=== PATIENT | male | born 1980 | race Caucasian/White ===

== ENCOUNTER 2022-02-03 09:43 | Inpatient (IN) | payer MEDICAID, OTHER ==
[~2022-02-03] VITALS: Ht 190.5 cm; Wt 118.2 kg
[~2022-02-03 09:43] MED LIST: LISI-709; SERT50TA; SIMV10TA2
[2022-02-03 10:21] LABS: Basophils # (auto) 0.1 10 ^3/uL (0-0.2); Basophils % (auto) 0.8 % (0.0-2.0); Eosinophils # (auto) 0.1 10 ^3/uL (0-0.8); Eosinophils % (auto) 1.2 % (0.0-7.0); Hematocrit 49.9 % (41.0-53.0); Hemoglobin 17.6 g/dL (13.5-17.5); Lymphocytes # (auto) 1.5 10 ^3/uL (0.4-5.4); Lymphocytes % (auto) 20.4 % (10.0-50.0); Mean Corpuscular Hemoglobin 32.4 pg (28.0-32.0); Mean Corpuscular Hgb Conc. 35.2 g/dL (32.0-36.0); Mean Corpuscular Volume 92.1 fL (80.0-100.0); Monocytes # (auto) 0.4 10 ^3/uL (0-1.3); Monocytes % (auto) 5.6 % (0.0-12.0); Neutrophils # (auto) 5.4 10 ^3/uL (1.6-8.6); Nucleated Red Blood Cells % 0.1 %; Red Blood Cells 5.42 10^6/uL (4.5-5.90); Red Cell Distribution Width 12.8 % (11.8-14.3); White Blood Cell 7.5 10^3/uL (4.4-10.8)
[2022-02-03 10:32] LABS: Albumin 3.8 g/dL (3.4-5.0); Calcium 9.1 mg/dL (8.5-10.1)
[2022-02-03 10:36] LABS: BUN/Creatinine Ratio 11.1; Bilirubin, Total 0.9 mg/dL (0.2-1.0); Total Protein 7.3 g/dL (6.4-8.2)
[2022-02-03] MEDS ORDERED: SODIUM CHLORIDE 0.9% 1,000 ML IV ONE ×3 (11:15→17:15)
[2022-02-03] MEDS ORDERED: ASPirin 81 mg TAB PO ONE (11:15)
[2022-02-03 12:19] LABS: INR 0.94 (0.9-1.15); Partial Thromboplastin Time 28.2 sec (24.6-33.4)
[2022-02-03] MEDS ORDERED: AZITHROMYCIN 500MG/ 250ML 250 ML IV ONE (16:15)
[2022-02-03] MEDS ORDERED: cefTRIAXone 1GM/50ML D5W 50 ML IV ONE (16:15)
[2022-02-03] MEDS ORDERED: MORPHINE SULFATE INJ 2 MG/ml SYRG IV PRN ×2 (17:00)
[2022-02-03] MEDS ORDERED: NITROGLYCERIN 0.4 MG SL TAB SL PRN (17:00)
[2022-02-03 17:20] LABS: Lactic Acid w/Reflex 2.1 mmol/L (0.4-2.0)
[2022-02-03 17:29] LABS: Cholesterol 208 mg/dL (< 200)
[2022-02-03 17:32] LABS: HDL Cholesterol 30 mg/dL (40-59); LDL Cholesterol 156 mg/dL (< 100); Triglycerides 183 mg/dL (< 150)
[2022-02-03] MEDS: HYDROcodone-ACET 5/325MG TAB PO PRN ×2 (18:32→23:49)
[2022-02-03 23:01] VITALS: BP 110/80
[2022-02-03 23:24] VITALS: BP 110/80
[2022-02-03] MEDS: ATORVASTATIN 20 MG TAB PO SCH (23:49)
[2022-02-04] MEDS ORDERED: TEMAZEPAM 15 MG CAP PO ONE ×2 (00:30→23:00)
[2022-02-04 01:17] LABS: Urine Bacteria NONE SEEN /hpf (None Seen); Urine Blood Negative /uL (Negative); Urine Mucus FEW (None Seen); Urine Specific Gravity 1.022 (1.001-1.035); Urine WBC 2 /hpf (0 - 3)
[2022-02-04] MEDS ORDERED: IBUP200C14 PO (01:25)
[2022-02-04] MEDS ORDERED: PHEN1LIQ39 PO (01:25)
[2022-02-04 01:27] LABS: Alcohol, Urine < 3.0 mg/dL (0-10); Amphetamine Screen, Urine NEGATIVE (NEGATIVE); Benzodiazephine Screen, Urine NEGATIVE (NEGATIVE); Cannabinoid Screen, Urine NEGATIVE (NEGATIVE); Cocaine Screen, Urine NEGATIVE (NEGATIVE); Opiate Scree,Urine POSITIVE (NEGATIVE); Phencyclidine Screen, Urine NEGATIVE (NEGATIVE)
[2022-02-04 01:52] LABS: Barbiturate Scree,Urine NEGATIVE (NEGATIVE)
[2022-02-04 05:00] VITALS: BP 107/54
[2022-02-04 06:15] LABS: Basophils # (auto) 0.1 10 ^3/uL (0-0.2); Basophils % (auto) 0.5 % (0.0-2.0); Eosinophils # (auto) 0.2 10 ^3/uL (0-0.8); Hematocrit 45.9 % (41.0-53.0); Hemoglobin 15.6 g/dL (13.5-17.5); Lymphocytes # (auto) 3.3 10 ^3/uL (0.4-5.4); Lymphocytes % (auto) 34.3 % (10.0-50.0); Mean Corpuscular Hemoglobin 31.5 pg (28.0-32.0); Mean Corpuscular Volume 92.5 fL (80.0-100.0); Monocytes # (auto) 0.7 10 ^3/uL (0-1.3); Monocytes % (auto) 7.4 % (0.0-12.0); Neutrophils # (auto) 5.4 10 ^3/uL (1.6-8.6); Neutrophils % (auto) 55.8 % (37.0-80.0); Red Blood Cells 4.96 10^6/uL (4.5-5.90); Red Cell Distribution Width 12.9 % (11.8-14.3); White Blood Cell 9.7 10^3/uL (4.4-10.8)
[2022-02-04 06:33] LABS: Albumin 3.3 g/dL (3.4-5.0); Calcium 8.4 mg/dL (8.5-10.1); Potassium 4.1 mmol/L (3.5-5.1)
[2022-02-04 06:38] LABS: BUN/Creatinine Ratio 11.4; Bilirubin, Total 0.6 mg/dL (0.2-1.0); Total Protein 6.4 g/dL (6.4-8.2)
[2022-02-04 08:25] VITALS: BP 136/84
[2022-02-04] MEDS: cefTRIAXone 1GM/50ML D5W 50 ML IV SCH (08:33)
[2022-02-04] MEDS: ASPirin 81 mg TAB PO SCH (09:37)
[2022-02-04] MEDS: AZITHROMYCIN 500MG/ 250ML 250 ML IV SCH (09:37)
[2022-02-04] MEDS: NICOTINE 7MG/24HR TOPICAL PATCH TD SCH ×2 (09:38→10:57)
[2022-02-04] MEDS: ENOXAPARIN SOD 40 MG/0.4 ML SYRINGE SC SCH (09:38)
[2022-02-04] MEDS: ACETAMINOPHEN 325 MG TAB PO PRN (09:54)
[2022-02-04 12:30] VITALS: BP 131/73
[2022-02-04 16:25] VITALS: BP 118/78
[2022-02-04] MEDS: HYDROcodone-ACET 5/325MG TAB PO PRN (20:29)
[2022-02-04] MEDS: ATORVASTATIN 20 MG TAB PO SCH (20:29)
[2022-02-04 21:32] VITALS: BP 137/88
[2022-02-05 04:36] VITALS: BP 109/70
[2022-02-05 08:30] VITALS: BP 104/63
[2022-02-05] MEDS: cefTRIAXone 1GM/50ML D5W 50 ML IV SCH (09:27)
[2022-02-05] MEDS: ASPirin 81 mg TAB PO SCH (09:28)
[2022-02-05] MEDS: ACETAMINOPHEN 325 MG TAB PO PRN (09:28)
[2022-02-05] MEDS: ENOXAPARIN SOD 40 MG/0.4 ML SYRINGE SC SCH (09:37)
[2022-02-05] MEDS: NICOTINE 7MG/24HR TOPICAL PATCH TD SCH (10:00)
[2022-02-05] MEDS: AZITHROMYCIN 500MG/ 250ML 250 ML IV SCH (10:52)
[2022-02-05] MEDS ORDERED: AZIT250T PO (12:05)
[2022-02-05 12:30] VITALS: BP 124/76
[2022-02-05 16:30] VITALS: BP 129/76
== END 2022-02-05 18:25 | disposition home or self-care (01) | DRG 139 ==
LOC: ER 09:43 → TELE 17:03 → TELE-WESTW 22:50
PROVIDERS: ADMIT Registered Nurse; ATTEND Internal Medicine
DX: J18.9 Pneumonia, unspecified organism (principal); J44.0 Chronic obstructive pulmonary disease with (acute) lower respiratory infection; F12.10 Cannabis abuse, uncomplicated; N39.0 Urinary tract infection, site not specified; R55 Syncope and collapse; S00.03XA Contusion of scalp, initial encounter; R41.2 Retrograde amnesia; W18.39XA Other fall on same level, initial encounter; Z20.822 Contact with and (suspected) exposure to COVID-19; Z72.0 Tobacco use; Z71.6 Tobacco abuse counseling; Y93.89 Activity, other specified; Y92.89 Other specified places as the place of occurrence of the external cause; Y99.8 Other external cause status
CPT/HCPCS: 36415; 70450; 71046; 80053; 80061; 80307; 81001; 83036; 83605; 83735; 84443; 84484; 85025; 85379; 85610; 85730; 87040; 87070; 87086; 87205; 87426; 93005; 93306; 93886; 96361; 96365; G0378; J0696

== ENCOUNTER 2022-03-12 05:23 | Emergency (ER) | payer MEDICAID ==
[~2022-03-12] VITALS: Ht 190.5 cm; Wt 112.0 kg
[~2022-03-12 05:23] MED LIST changes: +AZIT250T PO; +IBUP200C14 PO; +PHEN1LIQ39 PO
[2022-03-12 07:49] VITALS: BP 118/74
[2022-03-12] MEDS ORDERED: AZITTAB PO (08:25)
== END 2022-03-12 09:07 | disposition home or self-care (01) ==
LOC: ER 05:23
DX: J18.9 Pneumonia, unspecified organism (principal); F17.210 Nicotine dependence, cigarettes, uncomplicated; I10 Essential (primary) hypertension; Z20.822 Contact with and (suspected) exposure to COVID-19
CPT/HCPCS: 36415; 71046; 87426; 87804